=== PATIENT | male | born 1985 | race Caucasian/White ===

== ENCOUNTER 2024-09-13 19:52 | Emergency (ER) | payer OTHER ==
[~2024-09-13] VITALS: Ht 182.9 cm; Wt 76.0 kg
[2024-09-13] MEDS ORDERED: HYDROCODON-ACE1 EA10 PO (22:04)
[2024-09-13 22:15] VITALS: BP 131/79
[2024-09-13] MEDS ORDERED: HYDROCODONE BIT/ACETAMINOPHEN 5/325 MG 1 TAB HOME.PACK PO PRN (22:15)
== END 2024-09-13 22:15 | disposition home or self-care (01) ==
LOC: ED 19:52
DX: S42.022A Displaced fracture of shaft of left clavicle, initial encounter for closed fracture (principal); W19.XXXA Unspecified fall, initial encounter; Z88.0 Allergy status to penicillin
CPT/HCPCS: 73030; 99283; A9270